=== PATIENT | male | born 1995 | race Two or more races ===

== ENCOUNTER → 2018-03-28 17:19 | Emergency (ER) | payer OTHER ==
--- NOTE | 2018-03-28 18:36 | ED ---
Laceration/Wound HPI - HPI Summary HPI Summary: 22 year old male presents with laceration to left ring finger today. He cut it on glass in the lab. He denies any foreign body in the wound. Area continues to bleed. Tetanus up-to-date. Has no medical conditions. Has full range of motion. No numbness or tingling. - History of Current Complaint Stated Complaint: LAC TO FINGER Time Seen by Provider: 03/28/18 17:52 Pain Intensity: 2 - Allergy/Home Medications Allergies/Adverse Reactions: Allergies Allergy/AdvReac Type Severity Reaction Status Date / Time Cephalosporins Allergy Rash Verified 03/28/18 17:32 clindamycin Allergy Rash Verified 03/28/18 17:32 Penicillins Allergy Rash Verified 03/28/18 17:32 PMH/Surg Hx/FS Hx/Imm Hx Endocrine/Hematology History: Denies: Hx Anticoagulant Therapy Respiratory History: Denies: Hx Asthma Infectious Disease History: No Infectious Disease History: Denies: Traveled Outside the [place] in Last 30 Days - Family History Known Family History: Positive: Non-Contributory - Social History Substance Use Type: Reports: None Smoking Status (MU): Never Smoked Tobacco Review of Systems Negative: Fever Negative: Chest Pain Negative: Shortness Of Breath Positive: Other - laceration left ring finger All Other Systems Reviewed And Are Negative: Yes Physical Exam Triage Information Reviewed: Yes Vital Signs On Initial Exam: Initial Vitals Temp Pulse Resp BP Pulse Ox 98.6 F 97 18 119/81 97 03/28/18 17:29 03/28/18 17:29 03/28/18 17:29 03/28/18 17:29 03/28/18 17:29 Vital Signs Reviewed: Yes Appearance: Positive: Well-Appearing Skin: Positive: Warm, Dry, Other - 3cm by 1/2cm laceration of palmar proximal phalanx of left ring finger, 2cm by 1/2cm at DIP of palmar aspect of left ring finger Head/Face: Positive: Normal Head/Face Inspection Eyes: Positive: Normal, Conjunctiva Clear ENT: Positive: Pharynx normal Respiratory/Lung Sounds: Positive: Clear to Auscultation, Breath Sounds Present Cardiovascular: Positive: Normal, RRR Musculoskeletal: Positive: Strength/ROM Intact - left hand, Other - capillary refill<2 secs Neurological: Positive: Normal Psychiatric: Positive: Normal Procedures - Laceration/Wound Repair 1 Location: Other - left ring finger proximal Description: Linear Anesthesia: Digital Length, Depth and Shape: 3cm by 1/2cm Irrigated w/ Saline (ccs): 250 Suture Type: Prolene Number of Sutures: 3 Sterile Dressing Applied?: No - telfa and metal finger splint 2 Location: Other - dip left ring finger Description: Linear Anesthesia: Digital Length, Depth and Shape: 2 1/2cm by 1/2cm laceration Irrigated w/ Saline (ccs): 250 Suture Type: Prolene Number of Sutures: 3 Sterile Dressing Applied?: No - telfa and finger splint Diagnostics - Vital Signs Vital Signs Temp Pulse Resp BP Pulse Ox 03/28/18 17:29 98.6 F 97 18 119/81 97 - Laboratory Lab Statement: Any lab studies that have been ordered have been reviewed, and results considered in the medical decision making process. Laceration Repair Course/Dx - Course Course Of Treatment: 22 year old male presents with laceration to left ring finger today. He cut it on glass in the lab. He denies any foreign body in the wound. Area continues to bleed. Tetanus up-to-date. Has no medical conditions. Has full range of motion. No numbness or tingling. On exam has 3 cm by half centimeter laceration of proximal phalanx of left ring. Cleaned and closed with 3 sutures. Has 2-1/2cm by half centimeter laceration of the DIP of left ring. Cleaned and closed with [address] in finger splint. Told to keep clean and dry. Patient understands agrees plan - Differential Dx Differental Diagnoses: Abrasion, Avulsion, Laceration - Clinical Impression Provider Diagnoses: Laceration of left ring finger Discharge - Sign-Out/Discharge Documenting (check all that apply): Patient Departure Patient Received Moderate/Deep Sedation with Procedure: No - Discharge Plan Condition: Good Disposition: HOME Patient Education Materials: Care For Your Stitches (ED) Additional Instructions: Keep area in splint, change dressing once a day for next 5 days Keep area clean and dry for 24 hours Take Tylenol or ibuprofen for pain every 6 hours Return to ED or primary for suture removal in 8-10 days Return to ED if develop signs of infection such as fever, spreading redness, or pus formation - Billing Disposition and Condition Condition: GOOD Disposition: Home
[2018-03-28 18:52] VITALS: BP 120/72
== END | disposition home or self-care (01) ==
LOC: ED 17:19
DX: S61.215A Laceration without foreign body of left ring finger without damage to nail, initial encounter (principal); W25.XXXA Contact with sharp glass, initial encounter; Y92.89 Other specified places as the place of occurrence of the external cause; Y99.0 Civilian activity done for income or pay; Z88.1 Allergy status to other antibiotic agents; Z88.0 Allergy status to penicillin
CPT/HCPCS: 12002; 99281